=== PATIENT | male | born 1955 | race Caucasian/White ===

== ENCOUNTER → 2019-12-01 | Outpatient (CLI) | payer MEDICARE, OTHER ==
[~2019-12-01] MED LIST: ASPIRIN EC81 M1 PO; COLACE100 MG PO
== END ==
LOC: M.CT 10:48
PROVIDERS: ATTEND Family Medicine
DX: I25.10 Atherosclerotic heart disease of native coronary artery without angina pectoris (principal); R91.8 Other nonspecific abnormal finding of lung field; Z98.890 Other specified postprocedural states

== ENCOUNTER → 2020-12-27 | Outpatient (CLI) | payer MEDICARE, OTHER | LOC: M.ULTRA 07:47 | PROVIDERS: ATTEND Family Medicine | DX: I70.0 Atherosclerosis of aorta (principal); Z87.891 Personal history of nicotine dependence ==